=== PATIENT | male | born 1940 | race Caucasian/White ===

== ENCOUNTER 2017-09-17 11:04 | Emergency (ER) | payer MEDICARE, BC ==
[2017-09-17 11:14] VITALS: BP 102/84
--- NOTE | 2017-09-17 11:29 | ER Report ---
History and Physical Time Seen By MD: 11:15 Hx. of Stated Complaint: NEEDS WOUND DRESSING CHANGE AND CATHETER REPLACED. HPI/ROS CHIEF COMPLAINT: Wound care and catheter replacement HISTORY OF PRESENT ILLNESS: This is a 76-year-old male who presents to the emergency department questing assistance with some wound care and a catheter replacement. Patient states that he is traveling through and has a wound on his right leg secondary to a pressure ulcer from when he was "laying on the floor for 2 days" and had what sounds like rhabdomyolysis, that he needs to have redressed. He has been stopping at ER's and Urgent cares every 2-3 days for wound care and cath care. Patient also has a catheter that was placed several months ago secondary to may be a prostate issue or acute kidney injury, the patient is unsure at this time why he has catheter. He is stating that it is leaking a little bit and would like to have it replaced. Patient has no other complaints, no chest pain, shortness of breath, nausea, vomiting, diarrhea, aches or chills. Patient does have a "severe PTSD" and does not like rapid movements or loud noises. When he arrived he was very anxious, holding his hands over his ears and yelling at staff, he has calmed himself down and states he feels much better now. REVIEW OF SYSTEMS: Respiratory: No cough, no dyspnea. Cardiovascular: No chest pain, no palpitations. Gastrointestinal: No vomiting, no abdominal pain. Musculoskeletal: No back pain. Integumentary: As above. Genitourinary: As above. Allergies: Coded Allergies: amitriptyline (Verified Adverse Reaction, Mild, 09/17/17) Sulfa (Sulfonamide Antibiotics) (Verified Adverse Reaction, Unknown, ) Tetracyclines (Verified Adverse Reaction, Unknown, 09/17/17) azithromycin (Verified Adverse Reaction, Unknown, 09/17/17) bupropion (Verified Adverse Reaction, Unknown, 09/17/17) carbamazepine (Verified Adverse Reaction, Unknown, 09/17/17) cephalexin (Verified Adverse Reaction, Unknown, 09/17/17) citalopram (Verified Adverse Reaction, Unknown, 09/17/17) gabapentin (Verified Adverse Reaction, Unknown, 09/17/17) gatifloxacin (Verified Adverse Reaction, Unknown, 09/17/17) mirtazapine (Verified Adverse Reaction, Unknown, 09/17/17) morphine (Verified Adverse Reaction, Unknown, 09/17/17) moxifloxacin (Verified Adverse Reaction, Unknown, 09/17/17) nortriptyline (Verified Adverse Reaction, Unknown, 09/17/17) oxcarbazepine (Verified Adverse Reaction, Unknown, 09/17/17) rabeprazole (Verified Adverse Reaction, Unknown, 09/17/17) sertraline (Verified Adverse Reaction, Unknown, 09/17/17) simvastatin (Verified Adverse Reaction, Unknown, 09/17/17) topiramate (Verified Adverse Reaction, Unknown, 09/17/17) tramadol (Verified Adverse Reaction, Unknown, 09/17/17) venlafaxine (Verified Adverse Reaction, Unknown, 09/17/17) Home Meds No Active Prescriptions or Reported Meds Past Medical/Surgical History Patient has a past medical and surgical history of PE, GERD, Linton catheter, rhabdomyolysis, pressure ulcer, severe PTSD. Reviewed Nurses Notes: Yes Constitutional Vital Sign - Last 24 Hours 09/17/17 11:14 Temp 98.5 Pulse 107 Resp 18 B/P (MAP) 102/84 Pulse Ox 97 O2 Delivery Room Air Physical Exam General Appearance: The patient is alert, has no immediate need for airway protection and no current signs of toxicity. Eyes: Pupils equal and round no injection. Respiratory: Chest is non tender, lungs are clear to auscultation. Cardiac: regular rate and rhythm. Gastrointestinal: Abdomen is soft and non tender, no masses, bowel sounds normal. Musculoskeletal: Neck: Neck is supple and non tender. Extremities have full range of motion and are non tender. Skin: An large oval pressure ulcer that is healing, good granulation tissue at the depth of muscle tissue, pink tissue around the border of the wound, no cellulitis. DIFFERENTIAL DIAGNOSIS: After history and physical exam differential diagnosis was considered for urinary retention, pressure ulcer, cellulitis and prostatitis. Medical Decision Making ED Course/Re-evaluation ED Course The patient was admitted to a room via wheelchair. A history and physical were obtained. Differential diagnoses were considered. Patient did not want extensive work done in the emergency department he was requesting to have his wound on his right testis lateralis reevaluated and redressed. He also was requesting to have the Linton catheter removed and attempt to urinate on his own. I did have wound care, and evaluate the patient's decubitus ulcer, they did dress the wound appropriately and discussed wound care techniques with the patient. The patient was given water, a medial and ultimately was unable to urinate. We did end up scanning his bladder twice the 2nd bladder scan showed over 500 mL of urine at which time I did tell the patient that we need to replace the bladder as he has no urge to urinate. The patient was reluctant but decided to proceed with the placement of a another Linton catheter. The placement was successful, nontraumatic, there did appear to be one clot that was disrupted otherwise the urine was clear. The patient didn't want anything else done at this time. I did instruct the patient to follow-up with his primary care provider, wound care and a urologist when he returns to [place]. The patient had no other questions or concerns and was discharged home. Patient was in agreement with this plan of care. See the PT wound care note for detailed wound care information. 09/17/2017 2:34:34 pm patient states he is still unable to urinate, has no urge to urinate at this time. I did tell him week away just a little bit longer as he does not have a significant amount of residual urine after the bladder scan. 09/17/2017 3:09:17 pm the patient was able to void without placing the Linton catheter, the patient has had a meal in the emergency department and the wound has been redressed by the wound care staff 09/17/2017 3:20:48 pm the patient states he still unable to urinate, does not feel the urge to urinate. I did tell him we will go ahead and scan his bladder again and we will consider putting in a new void catheter. Decision to Disposition Date: September 17, 2017 Decision to Disposition Time: 15:09 Depart Departure Latest Vital Signs Vital Signs Date Time Temp Pulse Resp B/P (MAP) Pulse Ox O2 Delivery O2 Flow Rate FiO2 09/17/17 11:14 98.5 107 18 102/84 97 Room Air Impression: Primary Impression: Pressure ulcer Additional Impression: Urinary retention Condition: Improved Disposition: HOME OR SELF-CARE New Scripts No Active Prescriptions or Reported Meds Patient Instructions: Linton Catheter Placement and Care (ED), Pressure Ulcer ( ED), Urinary Retention in Men (ED) Additional Instructions: Drink plenty of water. Get plenty of rest. Be sure to keep the dressing on for more than 2-3 days as recommended by Wound Care. When you get home be sure to follow up with a seo marketing specialist. Follow-up with a urologist when he returned home regarding the catheter and urinary retention. Return to the emergency department for any other concerns or worsening symptoms. Problem Qualifiers Primary Impression: Pressure ulcer Pressure ulcer location: thigh Pressure ulcer stage: unspecified pressure ulcer stage Laterality: right Qualified Codes: L89.219 - Pressure ulcer of right hip, unspecified stage ELKIN [employer]AT[employer] OPERATOR-BC September 17, 2017 11:29
== END 2017-09-17 15:30 | disposition home or self-care (01) ==
LOC: ER 11:07
DX: L89.219 Pressure ulcer of right hip, unspecified stage (principal); R33.9 Retention of urine, unspecified
CPT/HCPCS: 97162; 99283